=== PATIENT | female | born 1945 | race Caucasian/White ===

== ENCOUNTER 2021-03-30 05:21 | Day surgery (SDC) | payer MEDICARE ==
[2021-03-23 12:04] LABS: BASOPHILS % (AUTO) 0.7 % (0-1); EOSINOPHILS % (AUTO) 0.8 % (0-6); LYMPHOCYTES # (AUTO) 1.1 X10'3 (1.1-4.8); LYMPHOCYTES % (AUTO) 19.1 % (21-51); MEAN CORPUSCULAR HEMOGLOBIN 29.5 PG (27.0-31.0); MEAN CORPUSCULAR HGB CONC 32.1 g/dL (33.0-36.5); MEAN CORPUSCULAR VOLUME 91.9 FL (78-98); MEAN PLATELET VOLUME 6.4 FL (7.4-10.4); MONOCYTES # (AUTO) 0.6 X10'3 (0-0.9); MONOCYTES % (AUTO) 10.6 % (2-12); NEUTROPHILS % (AUTO) 68.8 % (42-75); PRE OP HEMOGLOBIN 14.1 g/dL (12.0-16.0); PRE OP PLATELET COUNT 313 X10'3 (140-440); RED BLOOD COUNT 4.79 X10'6 (4.20-5.60); RED CELL DISTRIBUTION WIDTH 14.2 % (11.5-14.5)
[2021-03-23 12:53] LABS: ALBUMIN 3.5 G/DL (3.4-5.0); ALKALINE PHOSPHATASE 65 IU/L (46-116); BLOOD UREA NITROGEN 14 MG/DL (7-18); BUN/CREATININE RATIO 16.7 (6.6-38.0); CALCIUM 8.6 MG/DL (8.5-10.1); CHLORIDE 106 MMOL/L (99-107); CREATININE 0.84 MG/DL (0.40-0.90); PRE OP ALT 25 U/L (30-65); PRE OP ANION GAP 8 (8-16); PRE OP AST 23 U/L (10-37); PRE OP BILIRUB, TOTAL 0.3 MG/DL (0.0-1.0); PRE OP GLUCOSE 99 MG/DL (70-104); PRE OP POTASSIUM 4.2 MMOL/L (3.4-5.1); PRE OP SODIUM 144 MMOL/L (135-145); TOTAL PROTEIN 7.1 G/DL (6.4-8.2); eGFR 66 ML/MIN
[2021-03-30] VITALS (9 sets, daily range): BP systolic 142–152; BP diastolic 61–74
[~2021-03-30] VITALS: Ht 154.9 cm; Wt 69.9 kg
[~2021-03-30 05:21] MED LIST: ALEN70TA60 PO; CHOL20004 PO; ROSU40TA PO; SYN0.088T PO; WARF-65 PO; ringers solution, lacted 1,000 ML IV SCH
[2021-03-30] MEDS ORDERED: famotidine 20mg tablet PO ONE (05:30)
[2021-03-30] MEDS ORDERED: cefazolin/dext.iso 2gm/100ml IV ONE (05:30)
[2021-03-30] MEDS ORDERED: ondansetron/PF 4mg/2ml inj IV PRN (06:25)
[2021-03-30] MEDS ORDERED: hydrALAZINE 20mg/ml inj. IV PRN (06:25)
[2021-03-30] MEDS ORDERED: morphine 4 MG/ML inj SYRINge IV PRN (06:25)
[2021-03-30] MEDS ORDERED: fentaNYL/PF 50MCG/1 ML 2ML syringe IV PRN ×2 (06:25)
[2021-03-30] MEDS ORDERED: labetalol 20mg/4ml (5mg/ml) syringe IV PRN (06:25)
[2021-03-30] MEDS ORDERED: morphine 2 MG/ML inj. syringe IV PRN (06:25)
[2021-03-30] MEDS ORDERED: ringers solution, lacted 1,000 ML IV SCH (06:25)
[2021-03-30] MEDS ORDERED: ketorolac trometh. 30mg/ml inj. ONE (06:37)
[2021-03-30] MEDS ORDERED: LIDOcaine 1% W/epiNEPHrine 1:200,000 10ml vial ONE (06:37)
[2021-03-30] MEDS ORDERED: LIDOcaine 1% 30ml preserv. free vial ONE (06:38)
[2021-03-30] MEDS ORDERED: BUPIVAcaine 0.5% inj/PF 60 ML ONE (06:38)
[2021-03-30 06:41] LABS: PRE OP INR 1.1 INR; PRE OP PROTIME 11.3 SECONDS (9.0-12.0)
[2021-03-30] MEDS ORDERED: fentaNYL/PF 50MCG/1 ML 2ML syringe ONE ×2 (07:08→07:47)
[2021-03-30] MEDS ORDERED: midazolam 1 mg/ML 2ml injection ONE (07:08)
[2021-03-30] MEDS ORDERED: propofol inj 20 ML IV ONE (07:39)
[2021-03-30] MEDS ORDERED: BUPIVAcaine 0.5% inj/PF 30 ml vial IJ ONE (07:51)
--- NOTE | 2021-03-30 08:06 | NUR ---
Received from OR via [facility] , accompanied by Anesthesiologist SUSY and report given by Anesthesiolgist. PATIENT WITH 20G PIV IN RIGHT UE RUNNING LR AT 100. DENIES PAIN AT THIS TIME. LEFT KNEE WRAPPED IN ANGEL BANDAGE AND IS CDI. Addendum: 03/30/21 at 0817 by Josué Pena RN, RN Amended: Links added.
== END 2021-03-30 08:56 | disposition home or self-care (01) ==
LOC: PAS 05:21
PROVIDERS: ATTEND Orthopaedic Surgery
DX: S83.272A Complex tear of lateral meniscus, current injury, left knee, initial encounter (principal); M17.12 Unilateral primary osteoarthritis, left knee; M94.262 Chondromalacia, left knee; E11.9 Type 2 diabetes mellitus without complications; E78.00 Pure hypercholesterolemia, unspecified; D68.59 Other primary thrombophilia; G44.89 Other headache syndrome; M19.011 Primary osteoarthritis, right shoulder; Z79.899 Other long term (current) drug therapy; Z79.01 Long term (current) use of anticoagulants; Z88.0 Allergy status to penicillin; Z88.5 Allergy status to narcotic agent; Z88.8 Allergy status to other drugs, medicaments and biological substances; Z88.2 Allergy status to sulfonamides; Z86.718 Personal history of other venous thrombosis and embolism; Z96.611 Presence of right artificial shoulder joint; Z98.890 Other specified postprocedural states; Z20.822 Contact with and (suspected) exposure to COVID-19; X58.XXXA Exposure to other specified factors, initial encounter; Y93.89 Activity, other specified; Y92.89 Other specified places as the place of occurrence of the external cause; Y99.8 Other external cause status
CPT/HCPCS: 29881; 36415; 80053; 82948; 85025; 85610; 85730; 93005; J1885; J2001; J2250; J2704; J3010; J7120; U0003; U0005; Z7506; Z7512; A4215; A4618; A6449; A7000